=== PATIENT | male | born 1970 | race Caucasian/White ===

== ENCOUNTER 2024-01-06 12:30 | Emergency (ER) | payer OTHER ==
[~2024-01-06] VITALS: Ht 162.6 cm; Wt 65.9 kg
[2024-01-06 12:46] VITALS: BP 146/80; PULSE 61; RESP 14; TEMP 97.8
== END 2024-01-06 17:03 | disposition home or self-care (01) ==
LOC: EMS 12:56
DX: S00.03XA Contusion of scalp, initial encounter (principal); W22.09XA Striking against other stationary object, initial encounter; Y93.89 Activity, other specified; Y92.218 Other school as the place of occurrence of the external cause; Y99.0 Civilian activity done for income or pay
CPT/HCPCS: 99281; Z7502